=== PATIENT | male | born 1995 | race Caucasian/White ===

== ENCOUNTER 2023-06-29 12:19 | Emergency (ER) | payer MEDICAID ==
[~2023-06-29] VITALS: Ht 175.3 cm; Wt 86.0 kg
[2023-06-29] MEDS ORDERED: ZIPRASIDONE MESYLATE 20MG/VIAL IM STA (12:32)
[2023-06-29 13:20] LABS: BASOPHILS % 0.4 % (0.0-2.0); HEMOGLOBIN. 13.9 g/dL (14.0-18.0); LYMPHOCYTES % 16.9 % (20.0-50.0); MEAN CORPUSCULAR HEMOGLOBIN 29.8 pg (28.0-32.0); MEAN CORPUSCULAR HGB CONC 33.8 g/dL (31.0-37.0); MEAN CORPUSCULAR VOLUME 88.3 fL (80.0-94.0); MEAN PLATELET VOLUME 7.1 fl (7.4-10.4); NEUTROPHILS % 73.7 % (40.0-76.0); PLATELET 250 x1000/uL (130-400); RED BLOOD CELL COUNT 4.65 mill/uL (4.7-6.1); RED CELL DISTRIBUTION WIDTH 13.2 % (11.6-14.6); WHITE BLOOD COUNT 9.3 x1000/uL (4.5-11.0)
[2023-06-29 13:40] VITALS: O2SAT 100
[2023-06-29] MEDS ORDERED: LORAZEPAM 2MG/ML CPJ IM ONE (13:45)
[2023-06-29] MEDS ORDERED: LORAZEPAM 4MG/ML VIAL IM NR (14:00)
[2023-06-29 14:20] LABS: *AMPHETAMINES SCREEN URINE NEGATIVE (NEGATIVE); *BARBITURATES SCREEN URINE NEGATIVE (NEGATIVE); *BENZODIAZEPINES SCREEN URINE NEGATIVE (NEGATIVE); *COCAINE SCREEN URINE NEGATIVE (NEGATIVE); CANNABINOID URINE SCREEN NEGATIVE (NEGATIVE); ECSTASY MDMA SCREEN URINE NEGATIVE (NEGATIVE); METHADONE URINE SCREEN Neg (NEGATIVE); OPIATES URINE SCREEN NEGATIVE (NEGATIVE); PHENCYCLIDINE URINE SCREEN NEGATIVE (NEGATIVE)
[2023-06-29 14:52] LABS: CARBON DIOXIDE 23 mEq/L (21-32); CHLORIDE 105 mEq/L (98-107); GLUCOSE 102 mg/dL (70-105); POTASSIUM 3.3 mEq/L (3.5-5.1); SODIUM 140 mEq/L (136-145)
[2023-06-29 14:53] LABS: ALBUMIN 4.3 g/dL (3.2-4.8); ASPARTATE AMINOTRANSFERASE 24 IU/L (<34); BILIRUBIN TOTAL 0.8 mg/dL (0.1-1.0); CALCIUM 9.8 mg/dL (8.7-10.4); CREATININE 0.9 mg/dL (0.6-1.3); PROTEIN TOTAL 6.8 g/dL (6.0-8.3); UREA NITROGEN BLOOD 9 mg/dL (9-23)
[2023-06-29 14:54] LABS: ALANINE AMINOTRANSFERASE 27 IU/L (10-49); ETHANOL BLOOD < 10 mg/dL (<10)
[2023-06-29 14:58] LABS: ACETAMINOPHEN < 2 ug/mL (10-30)
[2023-06-30] MEDS ORDERED: LORAZEPAM 2MG/ML CPJ IM ONE (13:45)
[2023-06-30] MEDS ORDERED: HALOPERIDOL LACTATE 5MG/ML VIAL IM ONE (13:45)
[2023-06-30] MEDS ORDERED: LORAZEPAM 4MG/ML VIAL IM NR (14:00)
[2023-06-30] MEDS: RISPERIDONE 1MG TABLET PO SCH (21:00)
[2023-07-01] MEDS: RISPERIDONE 1MG TABLET PO SCH ×2 (09:00→21:00)
[2023-07-01 21:24] VITALS: BP 112/67; PULSE 76; RESP 14; TEMP 98.2
== END 2023-07-01 21:57 ==
LOC: ER 12:45
DX: F23 Brief psychotic disorder (principal); Z20.822 Contact with and (suspected) exposure to COVID-19
CPT/HCPCS: 80053; 80305; 80307; 80329; 80320; 85025; 36415; 96372 ×2; 99291; 87426; J2060 ×2; J3486; C9803; Z7610 ×2; J1630; G0480